=== PATIENT | male | born 1950 | race Caucasian/White ===

== ENCOUNTER → 2016-08-25 | Outpatient (CLI) | payer MEDICARE, BC ==
--- NOTE | 2016-08-25 21:00 | CONS ---
DATE OF CONSULTATION: REASON FOR CONSULTATION: CANDIS. This patient is a 65-year-old male patient diagnosed having severe obstructive sleep apnea many years back. His last titration was done in September 2011, and the patient was titrated to a CPAP pressure of 14 cm of water. His machine broke and he is coming in for further advice regarding treatment. Currently he is not utilizing any CPAP therapy, and he has become symptomatic, knowing that he snores, stops breathing and wakes up constantly throughout the night. He is having excessive hypersomnia and sleepiness during the day. Note that since his original titration that was done in 2011, the patient has lost around 14 pounds. The patient uses a nasal pillow mask. PAST MEDICAL HISTORY: 1. Obstructive sleep apnea. 2. COPD. 3. Coronary artery disease. 4. Obesity. 5. Hypertension. 6. 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 7. Chronic atrial fibrillation. 8. Hypothyroidism. 9. Hyperlipidemia. SURGICAL HISTORY: Negative. DRUG ALLERGIES: NOT KNOWN. OUTPATIENT MEDICATION: 1. Warfarin. 2. Atorvastatin. 3. Allopurinol. 4. Pantoprazole. 5. Lisinopril. 6. Toprol. 7. Thyroxine. 8. Albuterol rescue inhaler. SOCIAL HISTORY: The patient is an ex-smoker. No history of alcoholism. No history of IV drugs. FAMILY HISTORY: Negative for sleep breathing disorder. REVIEW OF SYSTEMS: Twelve-point review of systems was done; positive findings were all mentioned above in the history of present illness. No grinding of the teeth. No sleepwalking or sleeptalking. No anxiety or panic attack. No restlessness in the lower extremities. BP is 127/74, pulse 84, respiratory rate 20, temperature 97.1, saturation 94% on room air. Weight is 330. Height is 5 feet 11 inches. BMI is 46.0. Neck size 21 inches. GENERAL APPEARANCE: Obese, calm, comfortable. HEENT: Short neck. Crowding of posterior pharynx. No goiter or neck masses. Mallampati class IV. LUNGS: Clear to auscultation. HEART: Sounds are irregular. Positive S1, S2. No S3. No S4. No murmurs. ABDOMEN: Obese, soft, nontender. Organs cannot be accurately palpated. EXTREMITIES: Trace edema. There is no cyanosis or clubbing. IMPRESSION: Symptomatic obstructive sleep apnea, severe. The patient was being successfully treated with CPAP pressure of 14. Currently his machine is broken and he is requesting a replacement machine. The patient is unwilling to undergo another titration, and he is very worried about the cost and the co-pay of the consult, study and the equipment. PLAN: 1. I ordered a CPAP machine for this patient at a pressure of 14 cm of water and a mask of choice. He prefers nasal pillows. The order was sent to [facility] upon his request. 2. The patient will contact me back if this order went through. He may need to come back in 30 to 90 days for a compliancy check.
== END ==
LOC: SLEEP 14:11
PROVIDERS: ATTEND Internal Medicine Critical Care Medicine
DX: G47.33 Obstructive sleep apnea (adult) (pediatric) (principal); Z79.01 Long term (current) use of anticoagulants; Z79.899 Other long term (current) drug therapy; Z79.891 Long term (current) use of opiate analgesic
CPT/HCPCS: 99204; 99211

== ENCOUNTER → 2019-03-31 | Outpatient (CLI) | payer MEDICARE ==
--- NOTE | 2019-03-31 12:41 | XR ---
EXAM TYPE: LUMBAR SPINE X RAY SERIES COMPARISON: 02/19/2015 HISTORY: Pain TECHNIQUE: 3 views are submitted. FINDINGS: Alignment is anatomic. The pedicles are intact. The transverse processes are intact. There is no spo ndylolisthesis. Mild hypertrophic change in multilevel degenerative disc disease noted. Facet arthrop athy seen at levels L2-S1 with most marked changes at L5-S1. Diffuse osteopenia noted. IMPRESSION: 1. Multilevel degenerative disc disease with facet arthropathy. Findings are similar to the prior anupam santoro
== END | disposition home or self-care (01) ==
LOC: RADXRYALE 11:23
PROVIDERS: ATTEND Family Medicine
DX: M51.36 Other intervertebral disc degeneration, lumbar region (principal); M46.96 Unspecified inflammatory spondylopathy, lumbar region
CPT/HCPCS: 72100